=== PATIENT | female | born 1995 | race Caucasian/White ===

== ENCOUNTER 2024-07-18 02:37 | Inpatient (IN) | payer BC ==
[~2024-07-18] VITALS: Ht 160 cm; Wt 79.5 kg
[2024-07-18] VITALS (26 sets, daily range): BP systolic 108–165; BP diastolic 67–93; PULSE 43–96; TEMP 97.7–98.9
[~2024-07-18 02:37] MED LIST: BIRTH CONTROL; PEPCID 20MG TAB20 MG PO
--- NOTE | 2024-07-18 02:45 | NUR ---
PT TO LR 4 WITH COMPLAINT OF GUSH OF CLEAR FLUID ABOUT 1 HOUR AGO. STARTING TO HAVE SOME CONTRACTIONS. REPORTS ACTIVE FM. NO VAGINAL BLEEDING. ONLY COMPLICATION OF WAS LOW PLATELET COUNT BEING TREATED BY ORAL STEROIDS, REPORTEDLY IMPROVED THIS WEEK.
[2024-07-18] MEDS ORDERED: Azithromycin 500 MG in NS 250 ML IV ONE (03:15)
[2024-07-18] MEDS ORDERED: LR 1,000 ML IV SCH ×2 (03:15→04:30)
--- NOTE | 2024-07-18 03:20 | NUR ---
DR WISEMAN AT BEDSIDE. ULTRASOUND CONFIRMED BREECH.
[2024-07-18 03:46] LABS: BASO % 0.3 % (0.0-2.0); EOS % 0.3 % (0.0-4.0); GRAN # 10.6 K/mm3 (1.4-6.5); GRAN % 74.6 % (42.2-75.2); HEMOGLOBIN 10.3 g/dl (12.5-16.0); LYMPH # 2.3 K/mm3 (1.2-3.4); LYMPH % 16.5 % (20.0-51.0); MEAN CELL VOLUME 80 fl (80.0-100.0); MEAN CORPUSCULAR HEMOGLOBIN 26 pg (27-31); MEAN CORPUSCULAR HGB CONC 33 g/dl (33.0-37.0); PLATELET COUNT 125 K/mm3 (130-400); RED BLOOD COUNT 3.95 M/mm3 (4.10-5.30); REDCELL DISTRIBUTION WIDTH-CV 13.1 % (11.5-14.5)
[2024-07-18 03:48] LABS: HEMATOCRIT 31.5 % (37.0-47.0)
--- NOTE | 2024-07-18 03:50 | NUR ---
0352- EMESIS 0354-FERRYBOAT PILOT TO BEDSIDE 0404-SITTING ON SIDE OF BED 0412-MED ADMINISTRATION PER FERRYBOAT PILOT 0415-TEST DOSE PER FERRYBOAT PILOT
[2024-07-18] MEDS ORDERED: PRENATAL TABLET PO (03:59)
[2024-07-18] MEDS ORDERED: PREDNISONE20 MG PO (04:01)
[2024-07-18] MEDS ORDERED: diphenhydrAMINE 25 MG CAP PO PRN (04:30)
[2024-07-18] MEDS ORDERED: diphenhydrAMINE 50 MG/ML 1 ML VIAL IV PRN (04:30)
[2024-07-18] MEDS ORDERED: ePHEDrine 50 MG/10 ML VIAL IV PRN (04:30)
[2024-07-18] MEDS ORDERED: Ondansetron 4 MG/2 ML VIAL IV PRN ×2 (04:30→06:00)
[2024-07-18] MEDS ORDERED: Naloxone 0.4 MG/ML VIAL IV PRN ×2 (04:30→06:00)
[2024-07-18] MEDS ORDERED: Ondansetron 4 MG/2 ML VIAL IV SCH (04:30)
--- NOTE | 2024-07-18 04:30 | NUR ---
PT LAYING SUPINE AFTER EPIDURAL. FEELING SOME RELIEF. CONTRACTIONS CLUSTERING.
[2024-07-18] MEDS ORDERED: Chloroprocaine PF 3% (30 MG/ML) 20 ML VIAL ONE (04:36)
[2024-07-18] MEDS ORDERED: Oxytocin 10 UNITS/ML VIAL ONE (04:46)
[2024-07-18] MEDS ORDERED: dexAMETHasone 10 MG/ML VIAL ONE (04:46)
[2024-07-18] MEDS ORDERED: Ketorolac 30 MG/ML VIAL ONE (04:46)
[2024-07-18] MEDS ORDERED: Ondansetron 4 MG/2 ML VIAL ONE (04:46)
[2024-07-18] MEDS ORDERED: NS 10 ML IV ONE (04:46)
--- NOTE | 2024-07-18 04:50 | NUR ---
TELLEZ AND SHAVE PREP. ABDOMINAL WASH COMPLETED. 0500-EFM REMOVED 0503-MOVED TO OR PER BED
[2024-07-18] MEDS ORDERED: LR 1,000 ML IV ONE (05:37)
[2024-07-18] MEDS ORDERED: oxyCODONE 5 MG TAB PO PRN (06:00)
[2024-07-18] MEDS ORDERED: Acetaminophen 500 MG TAB PO SCH (06:00)
[2024-07-18] MEDS ORDERED: LR 1,000 ML IV PRN (06:00)
[2024-07-18] MEDS ORDERED: Magnes Hydrox (MOM) 80 MG/ML 30 ML CUP PO PRN (06:00)
[2024-07-18] MEDS ORDERED: Loratadine 10 MG TAB PO PRN (06:00)
[2024-07-18] MEDS ORDERED: Sennosides/Docusate 8.6-50 MG TAB PO SCH (08:00)
[2024-07-18] MEDS ORDERED: predniSONE 10 MG TAB PO SCH (08:00)
[2024-07-18] MEDS ORDERED: Prenatal Vitamins/Iron/FA TAB PO SCH (09:00)
--- NOTE | 2024-07-18 11:25 | NUR ---
THIS RN TO PATIENTS ROOM TO ASSIST PATIENT IN AMBULATION. PATIENT ASSISTED TO DANGLE WITHOUT DIFFICULTY, PATIENT ASSSITED TO STANDING WITHOUT FEELING DIZZY OR LIGHT HEADED. PATIENT AMBUALTES TO THE RESTROOM WITH ASSISTANCE FROM THIS RN. TELLEZ DISCONTINUED, PERICARE PROVIDED BY PATIENT, CLEAN GOWN ON, AND MESH UNDERWEAR AND PAD ON. PATIENT AMBULATES AROUND ROOM INDEPENDENTLY.
[2024-07-18] MEDS ORDERED: Ibuprofen 800 MG TAB PO SCH (12:00)
--- NOTE | 2024-07-18 12:35 | NUR ---
REPORT GIVEN TO La GARCIA RN AND CARE ASSUMED.
[2024-07-18] MEDS ORDERED: traZODone 50 MG TAB PO PRN (21:00)
[2024-07-19 03:00] VITALS: BP 118/77; PULSE 88; TEMP 98
[2024-07-19 07:30] VITALS: BP 132/82; PULSE 58; TEMP 97.9
[2024-07-19 16:30] VITALS: BP 135/89; PULSE 53; TEMP 98.1
[2024-07-19 19:00] VITALS: BP 121/77; PULSE 69; TEMP 98.7
[2024-07-20 08:45] VITALS: BP 126/83; PULSE 72; TEMP 98.4
[2024-07-20] MEDS ORDERED: ROXICODONE 55 MG/TAB PO (09:36)
[2024-07-20] MEDS ORDERED: IBU800 M1 PO (09:36)
--- NOTE | 2024-07-20 10:40 | NUR ---
DISCHARGE INSTRUCTIONS REVIEWED WITH PATIENT AND SIGNIFICANT OTHER. PATIENT DOES NOT HAVE ANY QUESTIONS. PATIENT AMBULATORY OFF UNIT WITH SPOUSE AND THIS RN. PATIENT ASSISTED INTO THE CAR AND DISCHARGED HOME IN STABLE CONDITION.
== END 2024-07-20 10:40 | disposition home or self-care (01) | DRG 787 ==
LOC: LDRO 02:37 → LDR 02:40 → EDSTATUS 03:03 → OB 06:45
PROVIDERS: Obstetrics & Gynecology; ADMIT Obstetrics & Gynecology
PROC: 10D00Z1 Extraction of Products of Conception, Low, Open Approach (ICD-10-PCS; principal; 2024-07-18)
DX: O32.1XX0 Maternal care for breech presentation, not applicable or unspecified (principal); O99.12 Other diseases of the blood and blood-forming organs and certain disorders involving the immune mechanism complicating childbirth; Z3A.39 39 weeks gestation of pregnancy; Z37.0 Single live birth; D69.59 Other secondary thrombocytopenia; O99.02 Anemia complicating childbirth; D64.9 Anemia, unspecified
CPT/HCPCS: J0456; J0665; J0690; J1100; J1885; J2401; J2405; J2590; J2795; J7050; J7120; J7512

== ENCOUNTER → 2024-07-29 | Outpatient (CLI) | payer BC ==
[~2024-07-29] MED LIST changes: +IBU800 M1 PO; +PREDNISONE20 MG PO; +PRENATAL TABLET PO; +ROXICODONE 55 MG/TAB PO
--- NOTE | 2024-07-29 14:30 | NUR ---
Pt, Sophia Jones, presents for outpatient consult with 11 day old baby boy, Kurtis Jones. She is accompanied by her spouse, Sony Jones. [facility] physician, Dr. Burr, recommended the consult due to Kurtis not gaining weight. Kurtis was born by c/section for breech presentation on [birth year]. He is pt's first baby. weight was 8# 9.6oz (3900 gms). On 07/27/[address] Burr his weight was 3.45 KG. He has been hanging around this 11-12% wt loss for about a week. Today Kurtis weighs 7# 9.5oz (3446 gms). Family reports qs voids and stools. The stools just turned yellow, from green, over the last 2 days. Kurtis eats between 11 and 15 times per the BF rui they family uses. He has had no supplement and she has not used a breastpump. Pt has been using a nipple sheild to nurse since the hospital. This LC is able to teach pt how to use an off-center latch and compression of the areola to get Kurtis directly latched. He nurses well, swallows are audible. After nursing the first breast Kurtis had a gain of 3.5oz (98 gms), and after the second his total gain was 4.9oz (136 gms). Impression: Foremilk/hindmilk imbalance. This is consistent with a baby that is well hydrated, content after feeding and having an extended period of green stools. POC: Block feeding. Offer the same breast exclusively x2 in a row, then switch to the opposite breast x2 in a row. Allow the over-fullness to send a negative feedback to reduce oversupply. If Kurtis does not demonstrate a gain at his appointment in two days with Dr. Burr, pt is advised to pump an ounce off the breast prior to to allow him access to hindmilk prior to to getting full. F/U: Two days with Dr. Burr. Pt to contact this LC to discuss his wt, and change in feeding plans if needed, and determine follow up. Family verbalizes understanding, questions invited and answered.
== END ==
LOC: LAC 06:15
DX: Z39.1 Encounter for care and examination of lactating mother (principal); Z71.89 Other specified counseling